=== PATIENT | male | born 1970 | race Caucasian/White ===

== ENCOUNTER → 2023-10-24 09:49 | Outpatient (REF) | payer BC, SELFPAY ==
[2023-10-24 10:08] LABS: Urine Albumin Negative (Neg - Trace); Urine Bilirubin Negative (Negative); Urine Character Clear (Clear); Urine Color Yellow; Urine Glucose Negative (Negative); Urine Ketone Negative (Negative); Urine Leukocyte Negative (Negative); Urine Nitrite Negative (Negative); Urine Occult Blood Negative (Negative); Urine Urobilinogen Negative (Neg - 1+)
[2023-10-24 10:18] LABS: % Basophils 1.1 % (0-2); % Eosinophils 2.1 % (0-6); % Immature Granulocytes 0.2 % (0-0.5); % Lymphocytes 31.9 % (20.5-51.1); % Monocytes 7.9 % (1.7-9.3); % Neutrophils 56.8 % (42.2-75.2); Absolute Basophils 0.1 10^3/uL (0-0.2); Absolute Eosinophils 0.2 10^3/uL (0-0.7); Absolute Lymphocytes 2.7 10^3/uL (1.2-3.4); Absolute Monocytes 0.7 10^3/uL (0.1-0.6); Absolute Neutrophils 4.8 10^3/uL (1.4-6.5); Hematocrit 39.5 % (39.0-52.0); Hemoglobin 13.4 g/dL (13.0-18.0); Mean Corp Hgb Conc. 33.9 g/dL (33.0-37.0); Mean Corpuscular Hgb 28.6 pg (27.0-31.0); Mean Corpuscular Volume 84.2 fL (80.0-94.0); Mean Platelet Volume 9.2 fL (7.4-10.4); Nucleated Red Blood Cells % 0 % (-); Platelet Count 257 10^3/uL (130-400); Red Blood Cell Count 4.69 10^6/uL (4.70-6.10); Red Cell Dist. Width 14.6 % (11.5-14.5); White Blood Cell Count 8.5 10^3/uL (4.8-10.8)
[2023-10-24 10:38] LABS: ALT (SGPT) 23 U/L (0-50); AST (SGOT) 28 U/L (17-59); Albumin 3.9 g/dl (3.5-5.0); Alkaline Phosphatase 104 U/L (38-126); Blood Urea Nitrogen 13 mg/dl (9-20); Carbon Dioxide 25 mmol/L (22-30); Chloride 108 mmol/L (98-107); Glucose 91 mg/dl (70-99); HDL Cholesterol 62 mg/dl; LDL Cholesterol, Calculated 74 mg/dl; Potassium 4.3 mmol/L (3.5-5.1); Sodium 137 mmol/L (135-145); Total Bilirubin 0.7 mg/dl (0.2-1.3); Total Cholesterol 154 mg/dl (50-199); Total Protein 6.9 g/dl (6.3-8.2); Triglyceride 91 mg/dl (10-149); Very Low Density Lipoprotein 18 mg/dl (0-30); eGFR > 60.00
[2023-10-24 11:09] LABS: Glycohemoglobin (HgbA1c) 5.8 % (4.0-5.6)
[2023-10-24 11:17] LABS: TSH 1.54 uIU/ml (0.47-4.68)
[2023-10-24 11:20] LABS: PSA, Total - Screen 1.68 ng/ml (0.0-4.0)
[2023-10-26 19:39] LABS: Hepatitis B Surface Antibody Negative; Hepatitis C Antibody Negative (Negative)
== END ==
LOC: REG 09:49
PROVIDERS: ATTENDING PHYSICIAN Family Medicine
DX: Z00.00 Encounter for general adult medical examination without abnormal findings (principal); Z80.42 Family history of malignant neoplasm of prostate; Z11.59 Encounter for screening for other viral diseases; I10 Essential (primary) hypertension; R73.01 Impaired fasting glucose
CPT/HCPCS: 36415; 80053; 80061; 81003; 83036; 84403; 84443; 85025; 86706; 86803; G0103

== ENCOUNTER → 2023-12-02 14:03 | Outpatient (REF) | payer BC, SELFPAY | LOC: RAD 14:03 | PROVIDERS: ATTENDING PHYSICIAN Family Medicine | DX: R10.9 Unspecified abdominal pain (principal) | CPT/HCPCS: 74177; Q9967 ==

== ENCOUNTER 2024-02-06 16:35 | Emergency (ER) | payer BC, SELFPAY ==
[2024-02-06 16:37] VITALS: BP 190/102
[2024-02-06 17:26] VITALS: BMI 49.2
[2024-02-06 17:30] LABS: % Basophils 0.3 % (0-2); % Eosinophils 0.6 % (0-6); % Immature Granulocytes 0.4 % (0-0.5); % Lymphocytes 10.1 % (20.5-51.1); % Monocytes 13.2 % (1.7-9.3); % Neutrophils 75.4 % (42.2-75.2); Absolute Eosinophils 0.1 10^3/uL (0-0.7); Absolute Lymphocytes 0.9 10^3/uL (1.2-3.4); Absolute Monocytes 1.2 10^3/uL (0.1-0.6); Absolute Neutrophils 6.7 10^3/uL (1.4-6.5); Hematocrit 35.9 % (39.0-52.0); Hemoglobin 12.7 g/dL (13.0-18.0); Mean Corp Hgb Conc. 35.4 g/dL (33.0-37.0); Mean Corpuscular Hgb 27.9 pg (27.0-31.0); Mean Corpuscular Volume 78.7 fL (80.0-94.0); Mean Platelet Volume 9.8 fL (7.4-10.4); Nucleated Red Blood Cells % 0 % (-); Platelet Count 214 10^3/uL (130-400); Red Blood Cell Count 4.56 10^6/uL (4.70-6.10); Red Cell Dist. Width 13.4 % (11.5-14.5); White Blood Cell Count 8.9 10^3/uL (4.8-10.8)
[2024-02-06 17:31] VITALS: BP 124/75
[2024-02-06 17:45] LABS: ALT (SGPT) 24 U/L (0-50); AST (SGOT) 39 U/L (17-59); Albumin 3.6 g/dl (3.5-5.0); Alkaline Phosphatase 115 U/L (38-126); Blood Urea Nitrogen 12 mg/dl (9-20); Calcium 8.8 mg/dl (8.4-10.2); Carbon Dioxide 25 mmol/L (22-30); Chloride 96 mmol/L (98-107); Estimated Creatinine Clearance > 125 ml/min; Glucose 115 mg/dl (70-99); Potassium 3.3 mmol/L (3.5-5.1); Sodium 131 mmol/L (135-145); Total Bilirubin 0.8 mg/dl (0.2-1.3); Total Protein 6.8 g/dl (6.3-8.2); eGFR > 60.00
[2024-02-06] MEDS: TYLENOL 1000 MG PO (18:21)
[2024-02-06] MEDS: NSS 1000 IV (18:21)
[2024-02-06] MEDS: TORADOL 30 MG IV (18:22)
[2024-02-06] MEDS: REGLAN 10 MG IV (18:22)
[2024-02-06] MEDS: BENADRYL 25 MG IV (18:22)
[2024-02-06 18:51] VITALS: BP 138/83
[2024-02-06 18:52] LABS: Urine Albumin 1+ (Neg - Trace); Urine Bilirubin 1+ (Negative); Urine Character Clear (Clear); Urine Color Yellow; Urine Glucose Negative (Negative); Urine Ketone Trace (Negative); Urine Leukocyte Trace (Negative); Urine Nitrite Negative (Negative); Urine Occult Blood 1+ (Negative); Urine Specific Gravity 1.025 (<1.030); Urine Urobilinogen 3+ (Neg - 1+)
[2024-02-06 19:01] LABS: Urine Mucus Few
[2024-02-06 19:02] LABS: Urine Bacteria Few (Negative); Urine Granular Cast 0-2 /LPF (0); Urine White Cell 0-2 /HPF (0-5)
[2024-02-06] MEDS: ROCEPHIN 2000 MG IV (19:03)
[2024-02-06] MEDS: ZITHROMAX 500 MG PO (19:03)
--- NOTE | 2024-02-06 19:09 | ED.GENMED ---
History of Present Illness
<Nico Perera DO - Last Filed: 02/06/24 19:09>
General
Chief Complaint: Cold/Flu/URI Symptoms
Time Seen by Provider: 02/06/24 16:59
Travel History
Have you had any contact with someone who has COVID-19?: No
Do you have any symptoms of coronavirus? Fever > 100 degrees, chills, cough, shortness of breath, sore throat, loss of taste or smell, muscle aches, or headache?: No
<Sandoval Dunn Jr., PA-C - Last Filed: 02/06/24 21:25>
General
Source: patient and spouse
Exam Limitations: none
Nursing documentation reviewed up to this point in time: agreed with
History of Present Illness
History of Present Illness:
53-year-old male with past medical history of paroxysmal A-fib hypertension presenting to the emergency department today with concerns of cough sore throat fevers diarrhea over the past 5 days worsening cough for the past day or so seem to feel
somewhat better in the last few days but noticed throughout the day today worsening fever and cough. Did take Tylenol prior to arrival. Denies specific chest pain shortness of breath
Past History
<Nico Perera DO - Last Filed: 02/06/24 19:09>
Past History
ED Past Medical History: HTN and Other (Anxiety)
ED Past Surgical History: Other (gastric bypass)
Social History
Tobacco: Non-smoker
Alcohol: None
Personal:
Living: with family
Review of Systems
<Sandoval Dunn Jr., PA-C - Last Filed: 02/06/24 21:25>
Review of Systems
Allergies reviewed?: Yes
All Other Systems: ROS reviewed and negative except as documented in HPI and ROS
Phy Exam
<Sandoval Dunn Jr., PA-C - Last Filed: 02/06/24 21:25>
Physical Exam
Physical Exam:
GENERAL: Alert , in no apparent distress
EYE: pupils equal and reactive
NECK: Supple, no significant adenopathy.
ENT: Swollen boggy nasal turbinates, irritation of the posterior pharynx without significant swelling no exudate grossly patent airway o/p clr, mmm.
CARDIAC: Regular rate and rhythm .
LUNGS: Clear breath sounds bilaterally, no acute respiratory distress, no wheezes/rales/rhonchi
ABDOMEN: Soft, without focal tenderness, no r/g, no cvat
NEUROLOGICAL: Alert and oriented, no focal neuro deficits
SKIN: Warm and dry, skin intact.
MUSCULOSKELETAL: No edema, well perfused.
PSYCH: Normal and appropriate interaction.
Course
<Nico Perera DO - Last Filed: 02/06/24 19:09>
Orders/Labs/Results
Orders:
Orders
02/06/24 17:19
CBC/With Diff [Complete Blood Count/With Diff] Urgent
CMP [Comprehensive Metabolic Panel] Urgent
Influenza A+B Rapid Molecular Urgent
DARLIN Source: Nasal Swab
Specimen Description:
02/06/24 17:58
Diphenhydramine [Benadryl] 25 mg IV NOW STA
Ketorolac [Toradol] 30 mg IV NOW STA
Metoclopramide [Reglan] 10 mg IV NOW STA
Chest [CR Chest - 2 Views ] Urgent
Comment:
Reason For Exam: cough fever
02/06/24 17:59
0.9% Sodium Chloride 1000 ml [Nss] 1,000 ml IV BOLUS
02/06/24 18:00
Acetaminophen [Tylenol] 1,000 mg PO NOW STA
02/06/24 18:24
Urinalysis Reflex To Culture Urgent
Date Specimen was Collected: 02/06/24
Time Specimen was Collected: 18:23
Urine Microscopic Reflex Cult Urgent
02/06/24 18:50
Azithromycin [Zithromax] 500 mg PO NOW STA
CefTRIAXone [Rocephin] 2,000 mg IV NOW STA
Abnormal Lab Results
02/06/24 02/06/24
17:19 18:24
RBC 4.56 L 10^6/uL
(4.70-6.10)
Hgb 12.7 L g/dL
(13.0-18.0)
Hct 35.9 L %
(39.0-52.0)
MCV 78.7 L fL
(80.0-94.0)
Absolute Neuts (auto) 6.7 H 10^3/uL
(1.4-6.5)
Absolute Lymphs (auto) 0.9 L 10^3/uL
(1.2-3.4)
Absolute Monos (auto) 1.2 H 10^3/uL
(0.1-0.6)
Neutrophils % 75.4 H %
(42.2-75.2)
Lymphocytes % 10.1 L %
(20.5-51.1)
Monocytes % 13.2 H %
(1.7-9.3)
Sodium 131 L mmol/L
(135-145)
Potassium 3.3 L mmol/L
(3.5-5.1)
Chloride 96 L mmol/L
(98-107)
Glucose 115 H mg/dl
(70-99)
Urine Ketones Trace A
(Negative)
Ur Occult Blood Reflex 1+ A
(Negative)
Urine Bilirubin 1+ A
(Negative)
Urine Urobilinogen 3+ A
(Neg - 1+)
Leukocyte Esterase Rfl Trace A
(Negative)
Urine RBC 7-10 A /HPF
(0-2)
Urine Bacteria (Reflex) Few A
(Negative)
Urine Albumin (Reflex) 1+ A
(Neg - Trace)
02/06/24 17:19
02/06/24 17:19
Vital Signs
Initial and Last Documented VS:
Initial Vital Signs
Temp Pulse Resp BP Pulse Ox
101.9 F H 119 20 190/102 96
02/06/24 16:37 02/06/24 16:37 02/06/24 16:37 02/06/24 16:37 02/06/24 16:37
Last Documented Vital Signs
Temp Pulse Resp BP Pulse Ox
101.2 F H 94 19 138/81 93
02/06/24 18:33 02/06/24 21:09 02/06/24 21:09 02/06/24 21:00 02/06/24 20:30
<Sandoval Dunn Jr., PA-C - Last Filed: 02/06/24 21:25>
Orders/Labs/Results
Orders:
Orders
02/06/24 17:19
CBC/With Diff [Complete Blood Count/With Diff] Urgent
CMP [Comprehensive Metabolic Panel] Urgent
Influenza A+B Rapid Molecular Urgent
DARLIN Source: Nasal Swab
Specimen Description:
02/06/24 17:58
Diphenhydramine [Benadryl] 25 mg IV NOW STA
Ketorolac [Toradol] 30 mg IV NOW STA
Metoclopramide [Reglan] 10 mg IV NOW STA
Chest [CR Chest - 2 Views ] Urgent
Comment:
Reason For Exam: cough fever
02/06/24 17:59
0.9% Sodium Chloride 1000 ml [Nss] 1,000 ml IV BOLUS
02/06/24 18:00
Acetaminophen [Tylenol] 1,000 mg PO NOW STA
02/06/24 18:24
Urinalysis Reflex To Culture Urgent
Date Specimen was Collected: 02/06/24
Time Specimen was Collected: 18:23
Urine Microscopic Reflex Cult Urgent
02/06/24 18:50
Azithromycin [Zithromax] 500 mg PO NOW STA
CefTRIAXone [Rocephin] 2,000 mg IV NOW STA
Abnormal Lab Results
02/06/24 02/06/24
17:19 18:24
RBC 4.56 L 10^6/uL
(4.70-6.10)
Hgb 12.7 L g/dL
(13.0-18.0)
Hct 35.9 L %
(39.0-52.0)
MCV 78.7 L fL
(80.0-94.0)
Absolute Neuts (auto) 6.7 H 10^3/uL
(1.4-6.5)
Absolute Lymphs (auto) 0.9 L 10^3/uL
(1.2-3.4)
Absolute Monos (auto) 1.2 H 10^3/uL
(0.1-0.6)
Neutrophils % 75.4 H %
(42.2-75.2)
Lymphocytes % 10.1 L %
(20.5-51.1)
Monocytes % 13.2 H %
(1.7-9.3)
Sodium 131 L mmol/L
(135-145)
Potassium 3.3 L mmol/L
(3.5-5.1)
Chloride 96 L mmol/L
(98-107)
Glucose 115 H mg/dl
(70-99)
Urine Ketones Trace A
(Negative)
Ur Occult Blood Reflex 1+ A
(Negative)
Urine Bilirubin 1+ A
(Negative)
Urine Urobilinogen 3+ A
(Neg - 1+)
Leukocyte Esterase Rfl Trace A
(Negative)
Urine RBC 7-10 A /HPF
(0-2)
Urine Bacteria (Reflex) Few A
(Negative)
Urine Albumin (Reflex) 1+ A
(Neg - Trace)
02/06/24 17:19
02/06/24 17:19
Vital Signs
Initial and Last Documented VS:
Initial Vital Signs
Temp Pulse Resp BP Pulse Ox
101.9 F H 119 20 190/102 96
02/06/24 16:37 02/06/24 16:37 02/06/24 16:37 02/06/24 16:37 02/06/24 16:37
Last Documented Vital Signs
Temp Pulse Resp BP Pulse Ox
101.2 F H 94 19 138/81 93
02/06/24 18:33 02/06/24 21:09 02/06/24 21:09 02/06/24 21:00 02/06/24 20:30
<Sandoval Dunn Jr., PA-C - Last Filed: 02/06/24 21:25>
MDM/Problems Addressed
MDM/Problems Addressed:
53-year-old male presenting to the emergency department with fever today initially had viral syndrome symptoms 5 days ago had slight improvement until today with worsening fever and cough. Upon arrival tachycardic and febrile. Labs were obtained
without emergent abnormalities. Chest x-ray showed pneumonia. Given initial dose of IV antibiotic. Patient was observed here for few hours and claims that symptoms are significantly improved heart rate improving to the 80s pulse ox remaining in
the mid 90s patient able to ambulate without a drop in his pulse ox patient appears stable for outpatient management return precautions were given.
<Sandoval Dunn Jr., PA-C - Last Filed: 02/06/24 21:25>
*Critical Care Note
Total Time (30-74mins, 75-104mins- exclusive of procedures): Not Applicable
ED Attending Note
<Nico Perera DO - Last Filed: 02/06/24 19:09>
ED Attending Note
Patient seen and examined by attending physician: Yes
I performed the substantive portion of visit, reviewed & personally made and approve the management plan that is documented in note by myself or JEANNE.: Yes
ED Attending Note:
Seen with PA examined independently 57-year-old male agree with assessment and plan looks like pneumonia is also some GI symptoms plan we will resuscitation antipyretics antibiotics
-
Portions of this chart may have been created with voice recognition software.� Occasional wrong word or��sound alike� substitutions may have occurred due to the inherent limitations of voice recognition software.
Discharge Plan
Departure
Patient Disposition: Home (Routine Discharge)
Date of Disposition: 02/06/24
Time of Disposition: 21:23
Patient with high blood pressure during this ER visit?: No
Condition: Good
Covid-19: Not Applicable
Discharge Problem:
Pneumonia
Instructions: Pneumonia, Adult (DC)
Prescriptions:
New
azithromycin 500 mg tablet
500 mg PO DAILY 3 Days Qty: 3 0RF
cefpodoxime 200 mg tablet
200 mg PO BID 7 Days Qty: 14 0RF
No Action
acetaminophen [Tylenol] 325 mg Tablet
650 mg PO Q4HPRN PRN (Reason: mild pain)
metoprolol succinate [Toprol XL] 50 mg Tablet Extended Release 24 Hr
50 mg PO DAILY
guaifenesin [Mucinex] 600 mg Tablet Extended Release 12hr
600 mg PO BIDPRN PRN (Reason: cough)
Referrals:
Kevin Bowling CRNP [Family Provider] -
Activity Restrictions/Additional Instructions:
You came to the emergency department today with concerns of ongoing fever and upper respiratory symptoms. You are found to have a pneumonia. Please take the antibiotics as prescribed and take Motrin and Tylenol to help with fever and discomfort.
Return to the emergency department for any worsening, new or concerning symptoms.
Interventions
Interventions:
*Risk Screen - Suicide Last Done: 02/06/24 17:27
*General Assessment Last Done: 02/06/24 17:27
*Neglect/Abuse Screening Last Done: 02/06/24 17:27
ED- Fall Risk Assessment Last Done: 02/06/24 17:29
*ED COVID-19 Vaccine History Last Done: 02/06/24 16:37
ED- Pulmonary Assessment Last Done: 02/06/24 17:29
Discharge Date and Time
Print Language: DANISH
[2024-02-06 20:00] VITALS: BP 130/86
[2024-02-06 21:00] VITALS: BP 138/81
== END 2024-02-06 21:42 | disposition home or self-care (01) ==
LOC: EMR 16:35
PROVIDERS: Physician Assistant; EMERGENCY PHYSICIAN Emergency Medicine; FAMILY PHYSICIAN Nurse Practitioner Family
DX: J18.9 Pneumonia, unspecified organism (principal); I48.0 Paroxysmal atrial fibrillation; I10 Essential (primary) hypertension; F41.9 Anxiety disorder, unspecified; Z98.84 Bariatric surgery status
CPT/HCPCS: 99283; 96374; 96375; 96361; 71046; 80053; 81003; 81015; 85025; 87502

== ENCOUNTER → 2024-12-24 07:26 | Outpatient (REF) | payer BC, SELFPAY ==
[2024-12-24 08:25] LABS: % Basophils 0.7 % (0-2); % Eosinophils 2.6 % (0-6); % Immature Granulocytes 0.2 % (0-0.5); % Lymphocytes 24.8 % (20.5-51.1); % Monocytes 7.2 % (1.7-9.3); % Neutrophils 64.5 % (42.2-75.2); Absolute Basophils 0.1 10^3/uL (0-0.2); Absolute Eosinophils 0.2 10^3/uL (0-0.7); Absolute Monocytes 0.6 10^3/uL (0.1-0.6); Absolute Neutrophils 5.2 10^3/uL (1.4-6.5); Hematocrit 42.2 % (39.0-52.0); Hemoglobin 13.9 g/dL (13.0-18.0); Mean Corp Hgb Conc. 32.9 g/dL (33.0-37.0); Mean Corpuscular Hgb 27.3 pg (27.0-31.0); Mean Corpuscular Volume 82.7 fL (80.0-94.0); Mean Platelet Volume 10.3 fL (7.4-10.4); Nucleated Red Blood Cells % 0 % (-); Platelet Count 223 10^3/uL (130-400); Red Cell Dist. Width 14.5 % (11.5-14.5); White Blood Cell Count 8.1 10^3/uL (4.8-10.8)
[2024-12-24 08:37] LABS: ALT (SGPT) 12 U/L (0-50); AST (SGOT) 18 U/L (17-59); Alkaline Phosphatase 111 U/L (38-126); Blood Urea Nitrogen 12 mg/dl (9-20); Calcium 9.7 mg/dl (8.4-10.2); Carbon Dioxide 26 mmol/L (22-30); Chloride 109 mmol/L (98-107); Glucose 83 mg/dl (70-99); HDL Cholesterol 62 mg/dl; LDL Cholesterol, Calculated 68 mg/dl; Potassium 4.2 mmol/L (3.5-5.1); Sodium 143 mmol/L (135-145); Total Bilirubin 0.7 mg/dl (0.2-1.3); Total Cholesterol 145 mg/dl (50-199); Total Protein 6.8 g/dl (6.3-8.2); Triglyceride 76 mg/dl (10-149); Very Low Density Lipoprotein 15 mg/dl (0-30); eGFR > 60.00
[2024-12-24 08:44] LABS: Urine Albumin Negative (Neg - Trace); Urine Bilirubin Negative (Negative); Urine Character Clear (Clear); Urine Color Yellow; Urine Glucose Negative (Negative); Urine Ketone Negative (Negative); Urine Leukocyte Negative (Negative); Urine Nitrite Negative (Negative); Urine Occult Blood 1+ (Negative); Urine Urobilinogen 1+ (Neg - 1+)
[2024-12-24 09:05] LABS: PSA, Total - Screen 1.33 ng/ml (0.0-4.0); TSH Reflex To Free T4 2.16 uIU/ml (0.47-4.68)
[2024-12-24 10:03] LABS: Urine Mucus Few; Urine Squamous Cell 0-2 /LPF (Few)
[2024-12-24 10:04] LABS: Urine Bacteria Few (Negative); Urine Red Blood Cell 0-2 /HPF (0-2); Urine White Cell 0-2 /HPF (0-5)
[2024-12-24 11:40] LABS: Glycohemoglobin (HgbA1c) 5.2 % (4.0-5.6)
== END ==
LOC: REG 07:26
PROVIDERS: ATTENDING PHYSICIAN Emergency Medicine
DX: R42 Dizziness and giddiness (principal); R06.02 Shortness of breath; E66.01 Morbid (severe) obesity due to excess calories; I10 Essential (primary) hypertension; Z80.42 Family history of malignant neoplasm of prostate
CPT/HCPCS: 36415; 71046; 80053; 80061; 81003; 81015; 83036; 84443; 85025; G0103

== ENCOUNTER → 2025-04-04 11:20 | Outpatient (REF) | payer BC, SELFPAY | LOC: DHSLP 11:20 | PROVIDERS: ATTENDING PHYSICIAN Family Medicine | DX: G47.33 Obstructive sleep apnea (adult) (pediatric) (principal); R09.02 Hypoxemia | CPT/HCPCS: 95800 ==